=== PATIENT | male | born 1985 | race Caucasian/White ===

== ENCOUNTER 2016-06-05 21:47 | Emergency (ER) | payer MEDICAID ==
[2016-06-05 22:06] VITALS: BP 113/65; PULSE 93; RESP 18; TEMP 98.8; O2SAT 99
--- NOTE | 2016-06-05 22:15 | ED PDOC ---
HPI: General Adult Time Seen by Provider: 06/05/16 22:13 Chief Complaint (Nursing): Lower Extremity Problem/Injury Chief Complaint (Provider): rash History Per: Patient Additional Complaint(s): 30-year-old male with no past medical history presents to emergency department with pain, redness and swelling to posterior right leg that started 3 days ago. Patient states it started as small area of redness to back of knee and it has grown in size. Area is very itchy and is now warm to the touch. He denies fever or chills. Patient also has scattered pustular lesions to his abdomen that have been present for the past several months. He denies any active drainage from these lesions. Patient denies recent travel, no recent exposure of any known allergens, no new soaps, lotions, detergents, perfumes. Patient denies any dietary changes or introduction of any new foods. Denies recent travel. Past Medical History Reviewed: Historical Data, Nursing Documentation, Vital Signs Vital Signs: Last Vital Signs Temp 98.8 F 06/05/16 22:01 Pulse 93 H 06/05/16 22:01 Resp 18 06/05/16 22:01 BP 113/65 06/05/16 22:01 Pulse Ox 99 06/05/16 22:15 - Medical History PMH: No Chronic Diseases - Surgical History Surgical History: No Surg Hx - Family History Family History: States: No Known Family Hx - Living Arrangements Living Arrangements: With Family - Social History Current smoker - smoking cessation education provided: Yes ("socially") Alcohol: Social Drugs: Denies - Home Medications Home Medications: Ambulatory Orders Medication Instructions Recorded Clindamycin [Cleocin] 300 mg PO TID #21 cap 06/05/16 predniSONE [Prednisone] 10 mg PO BID #10 tab 06/05/16 - Allergies Allergies/Adverse Reactions: Allergies Allergy/AdvReac Type Severity Reaction Status Date / Time No Known Allergies Allergy Verified 06/05/16 22:06 Review of Systems ROS Statement: Except As Marked, All Systems Reviewed And Found Negative Constitutional: Negative for: Fever, Chills Skin: Positive for: Other (redness to right leg, pustular lesions on abdomen) Physical Exam - Reviewed Nursing Documentation Reviewed: Yes Vital Signs Reviewed: Yes - Physical Exam Appears: Positive for: Well, Non-toxic, No Acute Distress Head Exam: Positive for: ATRAUMATIC, NORMAL INSPECTION Skin: Positive for: Rash (Isolated pustular lesion due to left lower abdominal wall, additional pustular lesion noted to right lower abdominal wall, no active drainage noted, no central pointing, no fluctuance, mild induration) Eye Exam: Positive for: Normal appearance, EOMI, PERRL Cardiovascular/Chest: Positive for: Regular Rate, Rhythm Respiratory: Positive for: Normal Breath Sounds Extremity: Positive for: Other (Localized cellulitis noted to posterior right thigh and right knee, (+) erythema, warmth and tenderness to palpation, mild skin excoriation noted from scratching, smaller patch of erythema and warmth noted to left posterior knee, no lower extrermity abscesses noted) Neurologic/Psych: Positive for: Alert, Oriented - ECG O2 Sat by Pulse Oximetry: 99 Pulse Ox Interpretation: Normal Medical Decision Making Medical Decision Making: Impression: Cellulitis vs possible allergic dermatitis Patient was medicated with an initial dose of clindamycin and initial dose of prednisone. Prescriptions given for same. Patient was advised to keep area clean and dry and was instructed to have wound re-evaluated in one to 2 days either with primary doctor or by returning to ED. Patient is aware he can return to ED at any time if acutely worse. Disposition - Clinical Impression Clinical Impression: Cellulitis of leg, Pustular lesion - Patient ED Disposition Is Patient to be Admitted: No Counseled Patient/Family Regarding: Diagnosis, Need For Followup, Rx Given - Disposition Referrals: [facility] [Outside] Disposition: Routine/Home Disposition Time: 23:01 Condition: STABLE Additional Instructions: Keep area clean and dry, avoid scratching, take prescription meds as directed. Have him reevaluated in one to 2 days. Return any time if acutely worse. Prescriptions: Clindamycin [Cleocin] 300 mg PO TID #21 cap predniSONE [Prednisone] 10 mg PO BID #10 tab Instructions: Cellulitis (ED), Furunculosis and Carbunculosis (ED)
== END 2016-06-05 23:22 | disposition home or self-care (01) ==
LOC: H.ER 21:47
DX: L40.1 Generalized pustular psoriasis (principal); L03.115 Cellulitis of right lower limb